=== PATIENT | female | born 1985 | race African-American/Black ===

== ENCOUNTER 2017-06-12 20:35 | Inpatient (IN) | payer OTHER ==
[~2017-06-12] VITALS: Ht 165.1 cm; Wt 63.5 kg
--- NOTE | 2017-06-13 00:14 | ED GI/GU/ABDOMINAL COMPLAINT ---
History of Present Illness General Chief Complaint: General Adult Stated Complaint: "PAIN IN MY BACK AND FRONT" Source: patient Exam Limitations: poor historian (very poor) Vital Signs & Intake/Output Vital Signs & Intake/Output Vital Signs Date Time Temp Pulse Resp B/P B/P Pulse O2 O2 Flow FiO2 Mean Ox Delivery Rate 06/13 0239 72 16 101/52 100 Room Air 06/13 0023 97.6 84 18 120/69 100 Room Air ED Intake and Output 06/13 0000 06/12 1200 Intake Total 0 Output Total Balance 0 Intake, Oral 0 Allergies Coded Allergies: No Known Allergies (06/12/17) Triage Note: PT TO TRIAGE C/O LOWER BACK AND LOWER BILAT ABD PAIN THAT BEGAN TONIGHT. PER PT SAW TWO DOCTORS TODAY AND HAD TO TWO TESTS. WENT TO OBGYN CLINIC IN [place] TODAY. PER PT "I MADE AN APPT BECAUSE I WANT TO DO SOMETHING ABOUT THIS ." PT THIRD PREG AND PER CLINIC TODAY 4 WEEKS PREG. Triage Nurses Notes Reviewed? yes LMP (ages 10-50): unknown ? Y Is pt currently ? No Onset: Abrupt Duration: day(s): (2), constant, continues in ED, getting worse Timing: single episode today Quality/Severity: cramping Severity Numbers: 7 Location: left lower quadrant, right lower quadrant, suprapubic Radiation: back Activities at Onset: none Prior Abdominal Problems: none Sexually Active: Yes No Modifying Factors: none Modifying Factors: Worsens With: movement, palpation. Associated Symptoms: abdominal pain HPI: 31-year-old female currently about 4 weeks presents for evaluation of abdominal pain and back pain. Patient states that earlier today she went to her primary doctor for evaluation had a test that was positive. Patient states that the pain is located in both sides of her lower abdomen and is described as cramping. The pain radiates to her back. She also reports some vaginal bleeding that feels like a period. She states that her last menstrual period was about one month ago. She is several days late for this next one. She is sexually active. No history of ectopic . No recent surgery or trauma. No chest pain shortness of breath or fever. Start taking any medicine for pain. (Son Alberto) Past History Travel History Traveled to [place] past 21 day No Medical History Any Pertinent Medical History? 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 No (Son Alberto) Review of Systems Review of Systems Constitutional: Reports: no symptoms. EENTM: Reports: no symptoms. Respiratory: Reports: no symptoms. Cardiovascular: Reports: no symptoms. GI: Reports: see HPI, abdominal pain, nausea. Genitourinary: Reports: see HPI, discharge (vaginal bleeding ). Musculoskeletal: Reports: no symptoms. Skin: Reports: no symptoms. Neurological/Psychological: Reports: no symptoms. Hematologic/Endocrine: Reports: no symptoms. Immunologic/Allergic: Reports: no symptoms. All Other Systems: Reviewed and Negative (Son Alberto) Physical Exam Physical Exam General Appearance: well developed/nourished, alert, awake, anxious, mild distress Head: atraumatic, normal appearance Eyes: Bilateral: normal appearance, PERRL, EOMI. Ears, Nose, Throat, Mouth: hearing grossly normal, dental injury, moist mucous membrane Neck: normal inspection, supple, full range of motion Respiratory: normal breath sounds, chest non-tender, no respiratory distress, lungs clear Cardiovascular: regular rate/rhythm, normal peripheral pulses Peripheral Pulses: 2+ radial (R), 2+ radial (L) Gastrointestinal: normal bowel sounds, soft, no organomegaly, guarding ( voluntary ), tenderness (rlq, suprapubic llq), the uterus feels slightly enlarged Back: normal inspection, normal range of motion, no vertebral tenderness Extremities: normal range of motion Neurologic/Psych: no motor/sensory deficits, awake, alert, oriented x 3, normal gait Skin: intact, normal color, warm/dry Core Measures ACS in differential dx? No Sepsis Present: No Sepsis Focused Exam Completed? No (Son Alberto) Progress Differential Diagnosis: appendicitis, cholecystitis, ectopic , intrauterine , kidney stone, ovarian cyst, ovarian torsion, PID/ cervicitis, peptic ulcer, PUD/GERD, perforated viscous, threatened AB, UTI/pyelo Plan of Care: Orders Procedure Date/time Status PARTIAL THROMBOPLASTIN TIME 06/13 13 Complete PROTHROMBIN TIME 06/13 13 Complete TYPE & SCREEN (NOT X-MATCH) 06/13 13 Complete URINE 06/13 7 Complete URINALYSIS 06/13 7 Complete LIPASE 06/13 7 Complete HUMAN BETA HCG TITRE 06/13 7 Complete C-REACTIVE PROTEIN 06/13 7 Complete COMPREHENSIVE METABOLIC PANEL 06/13 7 Complete CBC WITHOUT DIFFERENTIAL 06/13 7 Complete Laboratory Tests 06/13/179: Anion Gap 13, Estimated GFR > 60, BUN/Creatinine Ratio 14.3, Glucose 115 H, Calcium 9.5, Total Bilirubin 0.4, AST 14, ALT 20, Alkaline Phosphatase 59, C- Reactive Prot, Quant 0.7, Total Protein 7.1, Albumin 4.2, Globulin 2.9, Albumin/ Globulin Ratio 1.4, Lipase 61, Beta HCG, Quant 18148.0, PT 10.5, INR 1.00, APTT 28, CBC w Diff NO MAN DIFF REQ, RBC 3.95 L, MCV 87.6, MCH 29.6, MCHC 33.8, RDW 13.0, MPV 10.3, Gran % 85.2 H, Lymphocytes % 11.3 L, Monocytes % 3.2, Eosinophils % 0, Basophils % 0.3, Absolute Granulocytes 10.3 H, Absolute Lymphocytes 1.4, Absolute Monocytes 0.4, Absolute Eosinophils 0, Absolute Basophils 0 06/13/1713: Urinalysis LIGHT H, Urine Color YEL, Urine Clarity HAZY H, Urine pH 6.5, Ur Specific Theresa 1.025, Urine Protein TRACE H, Urine Ketones 15 H, Urine Nitrite NEG, Urine Bilirubin NEG, Urine Urobilinogen 1.0, Ur Leukocyte Esterase NEG, Ur Microscopic SEDIMENT EXAMINED, Urine RBC 10-15 H, Urine WBC 3-5 H, Ur Epithelial Cells MOD H, Urine Bacteria FEW H, Urine Mucus MANY H, Urine Hemoglobin LARGE H, Urine Glucose NEG, Urine Test POSITIVE Patient seen and evaluated. She states that she had a positive previous test today. She is reporting abdominal pain and vaginal bleeding. Vital signs are stable. She has diffuse lower abdominal tenderness. Ectopic pregnancies be considered. Blood work sent including hCG titer coags. Patient has not yet had a confirmed intrauterine . Urine is positive. Ultrasound to rule out ectopic ordered. Patient signout to DR HARRISON PENDING RULE OUT ECTOPIC. Initial ED EKG: none Hand-Off Endorsed To: Usama Harrison MD Endorsed Time: 141 Pending: ultrasound (Son Alberto) Diagnostic Imaging: Viewed by Me: Ultrasound. Discussed w/RAD: Ultrasound. Radiology Impression: Right adnexal ectopic . The area of hypoattenuation within the endometrial cavity is nonspecific. While this could represent a heterotopic gestational sac, the lack of a yolk sac or pole more likely suggests this simply represents fluid within the canal. Comments: D/W Dr. Dunn (Usama Harrison MD) Departure Departure Disposition: STILL A PATIENT Condition: Stable Referrals: Patient Has No Primary Care Dr (PCP/Family) Departure Forms: Customer Survey General Discharge Information (Son Alberto) Departure Time of Disposition: 310 Clinical Impression Primary Impression: Ectopic Secondary Impressions: Pelvic pain OR/GI Note Spoke With: Razia Dunn MD ED Treatment Decision: KYLE PRASAD requires urgent operative management or an emergent procedure that cannot be performed in the Emergency Room setting. Transport To: [facility] PA/REINSURANCE CLAIM ANALYST Co-Sign Statement Statement: ED Attending supervision documentation- x I saw and evaluated the patient. I have also reviewed all the pertinent lab results and diagnostic results. I agree with the findings and the plan of care as documented in the PA's/REINSURANCE CLAIM ANALYST's documentation. [] I have reviewed the ED Record and agree with the PA's/REINSURANCE CLAIM ANALYST's documentation. [] Additions or exceptions (if any) to the PAs/REINSURANCE CLAIM ANALYST's note and plan are summarized below: [] (Usama Harrison MD)
[2017-06-13 01:05] LABS: ABSOLUTE BASOPHIL COUNT 0 /CUMM (0.0-0.2); ABSOLUTE EOSINOPHIL COUNT 0 /CUMM (0.0-0.7); ABSOLUTE GRANULOCYTE CT 10.3 /CUMM (1.4-6.5); ABSOLUTE LYMPH COUNT 1.4 /CUMM (1.2-3.4); ABSOLUTE MONOCYTE COUNT 0.4 /CUMM (0.10-0.60); BASOPHIL % 0.3 % (0.0-2.0); EOSINOPHIL % 0 % (0-5); HEMATOCRIT 34.6 % (37-47); MEAN CORPUSCULAR HGB 29.6 PG (27.0-31.0); MEAN CORPUSCULAR HGB CONC 33.8 G/DL (33.0-37.0); MEAN CORPUSCULAR VOLUME 87.6 FL (81.0-99.0); MEAN PLATELET VOLUME 10.3 FL (7.4-10.4); PLATELET COUNT 198 /CUMM (130-400); RED BLOOD CELL CT 3.95 /CUMM (4.20-5.40); WHITE BLOOD CELL COUNT 12.1 /CUMM (4.8-10.8)
[2017-06-13 01:15] LABS: PT 10.5 SEC (9.4-12.5); PTT 28 SEC (25-37)
[2017-06-13 01:33] LABS: GRANULOCYTE % 85.2 % (42.2-75.2)
--- NOTE | 2017-06-13 02:58 | ULTRASOUND REPORT ---
EXAMINATION: US TRANSVAGINAL CLINICAL INFORMATION: Abdominal pain. Vaginal bleeding. COMPARISON: None TECHNIQUE: Transabdominal sonographic evaluation of the pelvis. FINDINGS: The uterus is anteverted. Uterus measures 9.7 x 6.2 x 6.8 cm. Endometrium is thickened suggesting a decidual reaction. Hypoechoic region seen in the endometrial canal which could represent a gestational sac. This measures 1 x 1.4 x 1 cm. No pole or yolk sac seen, and this more likely represents fluid within the canal. A uterine fibroid is noted within the myometrium measuring 1.5 x 1.5 x 1.7 cm. Within the right adnexa, there is a cystic structure which appears to represent a gestational sac. A pole is noted with a crown-rump length of 1 cm. This corresponds to a gestational age of 7 weeks 1 day. There is a heart rate present, at 146 bpm. The right ovary is not separately visualized. The left ovary is visualized measuring 3.4 x 3.2 x 3.8 cm. A corpus luteal cyst is noted measuring up to 2 cm. Normal arterial and venous spectral waveforms of the left ovary. Small volume of pelvic free fluid. IMPRESSION: Right adnexal ectopic . The area of hypoattenuation within the endometrial cavity is nonspecific. While this could represent a heterotopic gestational sac, the lack of a yolk sac or pole more likely suggests this simply represents fluid within the canal. This critical result was discussed with Dr. Hodges by telephone at 06/13/2017 2:52 AM and it was ascertained that the content and urgency of the report was understood at the time of direct communication.
--- NOTE | 2017-06-13 06:23 | RADIOLOGY REPORT ---
EXAMINATION: XR ABDOMEN CLINICAL INDICATION: Evaluate for lap pad. COMPARISON: None TECHNIQUE: AP view of the abdomen. FINDINGS: Surgical akash overlie the pelvis. There is no additional radiopaque foreign body identified. The bowel gas pattern is nonobstructed. Gas overlies the central abdomen which could be within a loop of bowel or represent free air in the operative setting. No acute osseous abnormality. IMPRESSION: No unexpected radiopaque foreign body identified. This critical result was discussed with Dr. Dunn by telephone at 06/13/2017 6:19 AM and it was ascertained that the content and urgency of the report was understood at the time of direct communication.
[2017-06-13 08:00] VITALS: BP 120/70
[2017-06-13 09:00] VITALS: BP 120/70
--- NOTE | 2017-06-13 09:00 | History & Physical Pre-Op ---
General Information and HPI MD Statement: I have seen and personally examined KYLE PRASAD and documented this H&P. The patient is a 31 year old F who presented with a patient stated chief complaint of abdominal pain []. History of Present Illness: 1-year-old 4 para 3003 assessments. May 05 who used on condoms regularly with her for control was surprise to her positive test at [facility] and she had some abdominal pain so she went to her [facility] clinic and had another positive test. Acutely after work today the patient had abdominal pain that felt like she had to push I term . On patient was transported to the childbirth center on [facility] and returned to the emergency room for an ultrasound and quantitative beta hCG. The ultrasound on performed at 3:00 in the morning demonstrated that the patient had a right adnexal mass consistent with an ectopic with heart on a small amount of fluid I in the abdomen on patient's beta-hCG was 17,000. 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 Isolation History: Standard Surgical History Pertinent Surgical History: non-contributory Past Family/Social History Psychosocial History Smoking Status: Never Smoked Review of Systems Review of Systems: -13 point review of systems as stated in the HPI Exam & Diagnostic Data Last 24 Hrs of Vital Signs/I&O Vital Signs Date Time Temp Pulse Resp B/P B/P Pulse O2 O2 Flow FiO2 Mean Ox Delivery Rate 06/13 0406 97.4 81 18 117/61 100 Room Air 06/13 0239 72 16 101/52 100 Room Air 06/13 0023 97.6 84 18 120/69 100 Room Air Intake & Output 06/13 1600 06/13 0800 06/13 0000 Intake Total 0 Output Total Balance 0 Intake, Oral 0 Patient 144 lb Weight Physical Exam: Pet[place], black female in pain HEENT anicteric Lungs clear Abdomen soft distention guarding rebound Pelvic 5 mL blood in vagina uterus 10-12 weeks size cervical motion tenderness positive fullness in the cul-de-sac Assessment/Plan Assessment/Plan: Assessment is acute abdomen ectopic plan laparoscopy possible exploratory laparotomy possible salpingo-oophorectomy possible transfusion antibiotics patient has been given opportunity ask questions regarding the risks and benefits of surgery patient has requested tubal ligation same time on she does not desire any further children risks of bleeding and infection and transfusion have been reviewed with patient As Ranked By This Provider Problem List: 1. Ectopic 2. Pelvic pain
--- NOTE | 2017-06-13 09:06 | Operative Report ---
Operative/Inv Procedure Report Surgery Date: 06/13/17 Name of Procedure: Diagnostic laparoscopy with exploratory laparotomy right salpingectomy Pre-Operative Diagnosis: Ectopic Post-Operative Diagnosis: Same Estimated Blood Loss: 50ml to 100ml Surgeon/Distribution Spec: Shaun LOWERY,Razia Ashley Anesthesia: general endotracheal tube Operative/Procedure Note Note: Procedure note patient was taken to the operating room on emergent basis timeout was performed after adequate induction general anesthesia via endotracheal tube patient was placed in dorsolithotomy the vagina was prepped and draped so fashion bladder was catheterized sterilely examination under anesthesia was performed CO2 tenaculum was placed on the Intralipid cervix gentle downward traction Mendiola cannula was placed this point surgeon regowned and gloved the level the umbilicus a stab incision was made to allow for the entry of Veress needle the abdomen was insufflated approximately 4 L of CO2 to liver edge dullness which point the Veress needle was removed a 10 mm trocar was inserted atraumatically through the eye umbilicus I at this point the sheath remained placed laparoscope placed through that sheath on the hemoperitoneum was noted the bleeding ectopic was noted I the on scope was removed on the incision was oversewn for the fascia for 0 and 3 over the skin I at this point I the 2 finger breadths of symptoms pubis in midline skin was cut was carried down to rectus fascia which was cut in curvilinear fashion I direction peritoneal cavity was entered high into the abdomen on the right tube was picked up with a Augusta clamped 2 using Barbie removed hemostasis was apparent and the specimen was sent to pathology the abdomen was area close amounts once until clear peritoneum was reapproximated after on the right ovary had been examined left tube and ovary were reexamined and hemostasis was apparent a wrist was applied to the surgical site on the fascia was reapproximated at this point on the nursing staff informed me that the counts were not correct on the fascia was opened on the eye for ration of the abdomen did not reveal foreign object counts remained in correct and x-ray was obtained on and the on counts were subsequently after the x-ray diagnosed that there were no foreign objects in the abdomen on the counts were correct the fascia was reapproximated using #1 suture skin was reapproximated akash after Bovie coagulation subtenons tissue on sterile dressings were applied the Mendiola cannula was removed the Hidalgo remained placed patient was returned spine position she was extubated transported recovery room which was the ICU awake and alert with counts on now correct Findings: 600 mL of unclotted blood on in the cul-de-sac slightly enlarged uterus a 6 cm on ruptured ectopic on in the right tube normal ovaries bilaterally a normal left tube
[2017-06-13] MEDS ORDERED: PERCOCET 5-3251 EACH PO (15:27)
[2017-06-13] MEDS ORDERED: IBUPROFEN800 M1 PO (15:27)
[2017-06-14 08:18] LABS: ABSOLUTE BASOPHIL COUNT 0 /CUMM (0.0-0.2); ABSOLUTE EOSINOPHIL COUNT 0 /CUMM (0.0-0.7); ABSOLUTE GRANULOCYTE CT 5.1 /CUMM (1.4-6.5); ABSOLUTE LYMPH COUNT 1.9 /CUMM (1.2-3.4); ABSOLUTE MONOCYTE COUNT 0.5 /CUMM (0.10-0.60); BASOPHIL % 0.3 % (0.0-2.0); EOSINOPHIL % 0.2 % (0-5); GRANULOCYTE % 67.8 % (42.2-75.2); MEAN CORPUSCULAR HGB CONC 32.8 G/DL (33.0-37.0); MEAN CORPUSCULAR VOLUME 88.3 FL (81.0-99.0); MEAN PLATELET VOLUME 10.2 FL (7.4-10.4); PLATELET COUNT 139 /CUMM (130-400); RBC DISTRIBUTION WIDTH 13.1 % (11.5-14.5); WHITE BLOOD CELL COUNT 7.5 /CUMM (4.8-10.8)
[2017-06-14 09:16] LABS: HEMATOCRIT 24.9 % (37-47); RED BLOOD CELL CT 2.82 /CUMM (4.20-5.40)
--- NOTE | 2017-06-14 11:09 | PN- General Surgery ---
Subjective Subjective: positive flatus; lightheaded Review of Systems: positive flatus Objective Vital Signs and I&Os Intake & Output 06/14 1600 06/14 0800 06/14 0000 06/13 1600 06/13 0800 06/13 0000 Intake Total 0 Output Total 700 Balance -700 0 Intake, Oral 0 Output, Urine 700 Patient 140 lb Weight Weight Reported by Patient Measurement Method Physical Exam: abd soft incision c/d/i ext: nt Assessment/Plan Assessment/Plan s/p salpingectomy for ectopic POD2 stabe d/c banks advance diet OOB Problem List: 1. Ectopic Core Measures Venous Thromboembolism VTE Risk Factors Surgery No Mechanical VTE Prophylaxis d/t N/A MechProphylax Ordered No VTE Pharm Prophylaxis d/t Bleeding (Active)
== END 2017-06-15 13:15 | DRG 545 ==
LOC: ERH 20:35 → PACUH 06-13 06:12 → ERH 06-13 06:12 → CRI 06-13 06:24 → PACUH 06-13 06:24 → GNO 06-13 06:24 → CRI 06-13 06:32 → PACUH 06-13 06:32 → ENTRNSPT 06-13 10:20 → EDTRNSPT 06-13 10:23 → EDTRNSPTSTS 06-13 10:23 → EDTRNSPT 06-13 10:46 → CMPTRNSPT 06-13 10:47 → GNO 06-13 10:48
PROVIDERS: Physician Assistant Medical; Specialist
PROC: 0WJJ4ZZ Inspection of Pelvic Cavity, Percutaneous Endoscopic Approach (ICD-10-PCS; principal; 2017-06-13)
PROC: 0UT50ZZ Resection of Right Fallopian Tube, Open Approach (ICD-10-PCS; 2017-06-13)
PROC: 10T20ZZ Resection of Products of Conception, Ectopic, Open Approach (ICD-10-PCS; 2017-06-13)
DX: O00.101 Right tubal pregnancy without intrauterine pregnancy (principal)
CPT/HCPCS: 74018; 76817; 81001; 81025; 87086; 88305; C9399; G0463; J0131; J0690; J1100; J1170; J1200; J1650; J1885; J2250; J2405; J3010; Q2036

== ENCOUNTER → 2017-06-26 | Day surgery (SDC) | payer OTHER ==
[~2017-06-26] VITALS: Ht 167.6 cm; Wt 65.3 kg
[~2017-06-26] MED LIST: 8 HOUR650 MG PO; IBUPROFEN800 M1 PO; PERCOCET 5-3251 EACH PO
--- NOTE | 2017-06-27 12:02 | Operative Report ---
Operative/Inv Procedure Report Surgery Date: 06/26/17 Name of Procedure: Laparoscopy left tubal ligation peritoneal washings Pre-Operative Diagnosis: Multiparity Post-Operative Diagnosis: Same adhesions Estimated Blood Loss: less than 50ml Surgeon/Bellhop Service Captain: Shaun LOWERY,Razia Ashley Anesthesia: general endotracheal tube, block Operative/Procedure Note Note: Procedure note patient was taken to the operating room placed on position after adequate anesthesia patient placed in dorsolithotomy position the vagina from dorsal fashion bladder was catheterized examination anesthesia performed at this point CO2 tenaculum was placed on the Intralipid surgeons down traction patient tolerated that well on it this point surgeon regowned and gloved at the level of the umbilicus a stab incision was made to allow for a Veress needle the abdomen was insufflated approximately 4 L CO2 to liver edge dullness which point the Veress needle was removed a 10 mm trocar was inserted atraumatically the umbilicus through that sheath a laparoscope was placed under direct visualization I a 5 mm port was placed to bring minutes of symptoms pubis in midline patient tolerated that well at the this point the M was insufflated the left tube was picked up carried to its fimbriated end possibly 7 cm that tube was Bovie coagulated hemostasis was apparent pictures were taken maximal CO2 was removed the abdomen the right tube was nonexistent on secondary to the recent on a salpingectomy to the ectopic both ovaries appeared normal on since removed from the abdomen as well as maximal CO2 the incision at the umbilicus oversewn using 0 for the fascia 3 over Z Marcaine was injected underneath both skin incisions sterile dressings were applied at the end the case Mendiola cannula was moved Hidalgo was removed patient was returned spine position she was awakened from anesthesia and transferred recovery room awake alert counts correct
== END ==
LOC: STS 01:20
DX: Z30.2 Encounter for sterilization (principal)
CPT/HCPCS: 81025; 88305; J1100; J2250; J2405